=== PATIENT | male | born 1985 | race Caucasian/White ===

== ENCOUNTER 2019-10-17 00:02 | Emergency (ER) | payer OTHER ==
[~2019-10-17] VITALS: Ht 172.7 cm; Wt 95.3 kg
[2019-10-17 00:08] VITALS: BP 128/68
--- NOTE | 2019-10-17 00:12 | NUR ---
PT AMBULATED TO BED 11 WITH STEADY GAIT.
--- NOTE | 2019-10-17 00:15 | NUR ---
ERMD AT BEDSIDE.
[2019-10-17] MEDS ORDERED: LIDOCAINE 2% 1000 MG/50 ML VIAL INJ ONE (00:20)
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
[2019-10-17] MEDS ORDERED: NEOMYCIN/POLYMYXIN/BACITRACIN 0.9 GM/1 PKT TP ONE (00:45)
[2019-10-17 00:46] VITALS: BP 128/68
--- NOTE | 2019-10-17 01:18 | NUR ---
[place] [employer] at bedside.
--- NOTE | 2019-10-17 01:30 | NUR ---
Patient discharged with v/s stable. Written and verbal after care instructions given and explained. Patient alert, oriented and verbalized understanding of instructions. Ambulatory with steady gait. All questions addressed prior to discharge. ID band removed. Patient advised to follow up with PMD. Rx of bactrim and motrin given. Patient educated on indication of medication including possible reaction and side effects. Opportunity to ask questions provided and answered.
== END 2019-10-17 01:30 | disposition home or self-care (01) ==
LOC: MED 00:02
DX: S05.32XA Ocular laceration without prolapse or loss of intraocular tissue, left eye, initial encounter (principal); R03.0 Elevated blood-pressure reading, without diagnosis of hypertension; R42 Dizziness and giddiness; Y04.2XXA Assault by strike against or bumped into by another person, initial encounter; Y93.89 Activity, other specified; Y92.89 Other specified places as the place of occurrence of the external cause; Y99.8 Other external cause status
CPT/HCPCS: 12013; 90471; 90715; 99283; J2001

== ENCOUNTER 2019-10-21 11:30 | Emergency (ER) | payer OTHER ==
[~2019-10-21] VITALS: Ht 172.7 cm; Wt 99.3 kg
[2019-10-21 11:36] VITALS: BP 119/66
--- NOTE | 2019-10-21 11:38 | NUR ---
Patient ambulated to bed 4. RN evaluating the patient at bedside.
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
--- NOTE | 2019-10-21 11:51 | NUR ---
Dr. Cuevas is evaluating the patient at bedside.
[2019-10-21 12:02] VITALS: BP 119/66
--- NOTE | 2019-10-21 12:02 | NUR ---
Patient discharged with v/s stable. Written and verbal after care instructions given and explained. Patient verbalized understanding. Ambulatory with steady gait. All questions addressed prior to discharge. Advised to follow up with PMD.
== END 2019-10-21 12:02 | disposition home or self-care (01) ==
LOC: MED 11:30
DX: S01.112D Laceration without foreign body of left eyelid and periocular area, subsequent encounter (principal); X58.XXXD Exposure to other specified factors, subsequent encounter; Z48.00 Encounter for change or removal of nonsurgical wound dressing
CPT/HCPCS: 99281

== ENCOUNTER 2019-10-24 09:53 | Emergency (ER) | payer OTHER, MEDICAID ==
[~2019-10-24] VITALS: Ht 172.7 cm; Wt 95.3 kg
[2019-10-24 09:55] VITALS: BP 140/87
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
[2019-10-24 10:05] VITALS: BP 140/87
== END 2019-10-24 10:05 | disposition home or self-care (01) ==
LOC: MED 09:53
DX: S01.91XD Laceration without foreign body of unspecified part of head, subsequent encounter (principal); X58.XXXD Exposure to other specified factors, subsequent encounter; Z48.00 Encounter for change or removal of nonsurgical wound dressing
CPT/HCPCS: 99282

== ENCOUNTER 2020-09-14 10:11 | Emergency (ER) | payer OTHER, MEDICAID ==
[~2020-09-14] VITALS: Ht 172.7 cm; Wt 99.8 kg
[2020-09-14 10:20] VITALS: BP 133/71
--- NOTE | 2020-09-14 10:24 | NUR ---
Ambulated to bed 9
--- NOTE | 2020-09-14 10:32 | NUR ---
35/M presents to ED with c/o 7/10 throbbing earache and headache since yesterday. Patient states "I wear airpods all night and I think thats why it hurts." Patient denies headache, blurred vision, alert and oriented x4, answering questions appropriately. Denies taking anything for pain prior to arrival to ED.
--- NOTE | 2020-09-14 10:35 | NUR ---
Dr. Ovalle evaluatng patient bedside
[2020-09-14] MEDS ORDERED: FLONAS NS (10:42)
[2020-09-14 10:48] VITALS: BP 133/71
== END 2020-09-14 10:48 | disposition home or self-care (01) ==
LOC: MED 10:11
DX: J02.9 Acute pharyngitis, unspecified (principal); H92.02 Otalgia, left ear
CPT/HCPCS: 99281

== ENCOUNTER 2020-09-16 07:54 | Emergency (ER) | payer OTHER, MEDICAID ==
[~2020-09-16] VITALS: Ht 172.7 cm; Wt 99.8 kg
[~2020-09-16 07:54] MED LIST: FLONAS NS
[2020-09-16 08:05] VITALS: BP 133/82
--- NOTE | 2020-09-16 08:10 | NUR ---
Patient to lobby for open bed.
[2020-09-16] MEDS ORDERED: [UNRECOGNIZED DRUG - CODE] PO (08:37)
== END 2020-09-16 08:55 | disposition home or self-care (01) ==
LOC: MED 07:54
DX: J06.9 Acute upper respiratory infection, unspecified (principal); Z20.822 Contact with and (suspected) exposure to COVID-19
CPT/HCPCS: 99283; U0003